=== PATIENT | male | born 1995 | race African-American/Black ===

== ENCOUNTER 2017-07-20 02:06 | Emergency (ER) | payer OTHER ==
[~2017-07-20] VITALS: Ht 188 cm; Wt 86.2 kg
[2017-07-20 02:10] VITALS: BP_SYST 121
[2017-07-20 02:26] VITALS: BP_SYST 121
== END 2017-07-20 02:20 ==
LOC: SED 02:06
DX: Z04.1 Encounter for examination and observation following transport accident (principal); F10.129 Alcohol abuse with intoxication, unspecified; V89.2XXA Person injured in unspecified motor-vehicle accident, traffic, initial encounter; Y93.89 Activity, other specified; Y92.410 Unspecified street and highway as the place of occurrence of the external cause; Y99.8 Other external cause status
CPT/HCPCS: 99283